=== PATIENT | female | born 1970 | race Two or more races ===

== ENCOUNTER 2024-10-17 10:41 | Emergency (ER) | payer OTHER ==
[~2024-10-17] VITALS: Ht 160 cm; Wt 102.3 kg
[2024-10-17 11:04] VITALS: BP 134/82; PULSE 109; RESP 18; O2SAT 96
[2024-10-17 11:29] LABS: Basophils # (auto) 0 10 ^3/uL (0-0.2); Basophils % (auto) 0.3 % (0.0-2.0); Eosinophils # (auto) 0 10 ^3/uL (0-0.8); Hematocrit 49.2 % (36.0-46.0); Hemoglobin 16.8 g/dL (12.2-16.2); Lymphocytes # (auto) 0.5 10 ^3/uL (0.4-5.4); Lymphocytes % (auto) 4.1 % (10.0-50.0); Mean Corpuscular Hemoglobin 31.1 pg (28.0-32.0); Mean Corpuscular Hgb Conc. 34.1 g/dL (32.0-36.0); Mean Corpuscular Volume 91.2 fL (80.0-100.0); Monocytes # (auto) 0.4 10 ^3/uL (0-1.3); Monocytes % (auto) 3.2 % (0.0-12.0); Neutrophils % (auto) 92.4 % (37.0-80.0); Platelet Count (auto) 231 10^3/uL (140-450); Red Blood Cells 5.39 10^6/uL (4.0-5.20); Red Cell Distribution Width 13.2 % (11.8-14.3); White Blood Cell 11.9 10^3/uL (4.4-10.8)
[2024-10-17 11:35] LABS: Anion Gap 9 (5-15); Carbon Dioxide 24 mmol/L (20-31); Chloride 107 mmol/L (98-107); Sodium 140 mmol/L (136-145)
[2024-10-17 11:36] LABS: Calcium 10.2 mg/dL (8.7-10.4)
[2024-10-17 11:37] LABS: Potassium 3.4 mmol/L (3.5-5.1)
--- NOTE | 2024-10-17 11:37 | ED.PDOC ---
History of Present Illness HPI Comments 54 y/o F, with a Hx of morbid obesity and cholecystectomy, presents with c/o abdominal pain, nausea, vomiting, and diarrhea, today. Patient endorses on sudden and unprovoked onset of symptoms, with no prior Hx of, last night, that has been progressively worsening since. Patient comments on pain being a 5/10, initially, and rates it, now, a 9/10 in addition to it worsening with movement. She reports no recent injuries, sick contact, or other significant or relevant history. Patient denies having any hematemesis, constipation, urinary symptoms, fever, chills, or other associated symptoms or modifiers at this time. 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 SERVER Hx Family History Family History: Unknown Social History Smoker: Non-Smoker Alcohol: Denies ETOH Use Drugs: Denies Drug Use Lives In: Home Gastrointestinal: reports: abdominal pain, diarrhea, nausea, vomiting All Other Systems: Reviewed and Negative (negative unless otherwise stated above or in HPI) Physical Exam General Appearance: Moderate Distress HEENT: Normal ENT Inspection, Pharynx Normal, TMs Normal Neck: Full Range of Motion, Non-Tender, Normal, Normal Inspection Respiratory: Chest Non-Tender, Lungs Clear, No Accessory Muscle Use, No Respiratory Distress, Normal Breath Sounds Cardiovascular: No Edema, No JVD, No Murmur, No Gallop, Normal Peripheral Pulses, Regular Rate/Rhythm Breast Exam: Deferred Gastrointestinal: No Organomegaly, Non Tender, No Pulsatile Mass, Normal Bowel Sounds, Soft Genitalia: Deferred Pelvic: Deferred Rectal: Deferred Extremities: No calf tenderness, Normal capillary refill, Normal inspection, Normal range of motion, Non-tender, No pedal edema Musculoskeletal : Apperance: Normal Neurologic: Alert, circular head saw operator II-XII nml as Tested, No Motor Deficits, Normal Affect, Normal Mood, No Sensory Deficits Cerebellar Function: Normal Reflexes: Normal Skin: Dry, Normal Color, Warm Peripheral Pulses: 3+ Radial (R), 3+ Radial (L) Lymphatic: No Adenopathy Was a procedure done? Was a procedure done?: No Differential Dx Considerations may include: gastritis, gastroenteritis, spoiled food intake, appendicitis, diverticulitis, acute abdomen, viral syndrome X-Ray, Labs, Meds, VS Vital Signs Date Time Temp Pulse Resp B/P (MAP) Pulse Ox O2 Delivery O2 Flow Rate FiO2 10/17/24 11:04 98.8 109 18 134/82 (99) 96 10/17/24 11:00 107 Lab Test 10/17/24 11:00 Range/Units White Blood Count 11.9 H 4.4-10.8 10^3/uL Red Blood Count 5.39 H 4.0-5.20 10^6/uL Hemoglobin 16.8 H 12.2-16.2 g/dL Hematocrit 49.2 H 36.0-46.0 % Mean Corpuscular Volume 91.2 80.0-100.0 fL Mean Corpuscular Hemoglobin 31.1 28.0-32.0 pg Mean Corpuscular Hemoglobin Concent 34.1 32.0-36.0 g/dL Red Cell Distribution Width 13.2 11.8-14.3 % Platelet Count 231 140-450 10^3/uL Mean Platelet Volume 9.2 6.9-10.8 fL Neutrophils (%) (Auto) 92.4 H 37.0-80.0 % Lymphocytes (%) (Auto) 4.1 L 10.0-50.0 % Monocytes (%) (Auto) 3.2 0.0-12.0 % Eosinophils (%) (Auto) 0.0 0.0-7.0 % Basophils (%) (Auto) 0.3 0.0-2.0 % Neutrophils # (Auto) 11.0 H 1.6-8.6 10 ^3/uL Lymphocytes # (Auto) 0.5 0.4-5.4 10 ^3/uL Monocytes # (Auto) 0.4 0-1.3 10 ^3/uL Eosinophils # (Auto) 0 0-0.8 10 ^3/uL Basophils # (Auto) 0 0-0.2 10 ^3/uL Nucleated Red Blood Cells 0.0 % Sodium Level 140 136-145 mmol/L Potassium Level 3.4 L 3.5-5.1 mmol/L Chloride Level 107 98-107 mmol/L Carbon Dioxide Level 24 20-31 mmol/L Anion Gap 9 5-15 Blood Urea Nitrogen 19 9-23 mg/dL Creatinine 0.77 0.550-1.02 mg/dL Glomerular Filtration Rate Calc 92 >90 mL/min BUN/Creatinine Ratio 24.7 H 10.0-20.0 Serum Glucose 154 H 74-106 mg/dL Calcium Level 10.2 8.7-10.4 mg/dL Patient alert. Complaining of abdominal pain. Vitals stable. Answering all questions. Abdomen is soft nontender. WBC he is elevated. Potassium slightly low. Was given potassium. Blood sugar elevated. Establish intravenous access. Was given fluids pain Reviewed her history. Explained to the patient. Continue cardiac monitoring. Time of 1ST Reevaluation: 11:50 Reevaluation 1ST: Unchanged Patient Education/Counseling: Diagnosis, Treatment Family Education/Counseling: No Family Present Departure 1 Departure Time of Disposition: 11:53 Impression: Primary Impression: Acute abdominal pain Additional Impression: Uncontrolled diabetes mellitus Qualified Codes: E13.65 - Other specified diabetes mellitus with hyperglycemia Disposition: ADMITTED INPATIENT Admit to: Med Surg Condition: Guarded Critical Care Note Critical Care Time?: No Stability Stability form required: No Heart Score Heart Score: Heart Score Response (Comments) Value History N/A 0 EKG N/A 0 Age N/A 0 Risk Factors N/A 0 Troponin N/A 0 Total 0 I personally scribed for CECILE ALBRECHT MD ([email or web address]) on 10/17/24 at 11:37. Electronically submitted by Camilo Brar ([email or web address]). CECILE ALBRECHT MD Oct 17, 2024 11:37
[2024-10-17 11:41] LABS: BUN/Creatinine Ratio 24.7 (10.0-20.0); Blood Urea Nitrogen 19 mg/dL (9-23)
[2024-10-17 11:43] LABS: Glucose 154 mg/dL (74-106)
[2024-10-17] MEDS ORDERED: POTASSIUM EFFERVESENT TAB 25 MEQ PO ONE (12:00)
[2024-10-17] MEDS ORDERED: SODIUM CHLORIDE 0.9% 1,000 ML IV ONE (12:00)
--- NOTE | 2024-10-25 18:09 | ECG ---
[facility] Test Date: 2024-10-17 Test Time: 11:00:48 Pat Name: RUPERTO GRAMAJO Department: ER Room: Gender: F Clinical Informatics Strategist: CHRIS : 1970 Requested By: CECILE ALBRECHT Order Number: [id number] Reading MD: Kemar Nix Measurements Intervals [place] Rate: 107 P: 58 AR: 140 QRS: 28 QRSD: 93 T: -34 QT: 343 QTc: 458 Interpretive Statements Sinus tachycardia Probable anterior infarct, age indeterminate Electronically Signed On 10-25-2024 18:10:36 PST by Kemar Nix Please click the below link to view image of tracing.
== END 2024-10-17 14:06 | disposition left against medical advice (07) ==
LOC: ER 10:41
DX: R10.9 Unspecified abdominal pain (principal); E11.9 Type 2 diabetes mellitus without complications; Z90.49 Acquired absence of other specified parts of digestive tract
CPT/HCPCS: 36415; 80048; 85025; 93005